=== PATIENT | female | born 1985 | race Caucasian/White ===

== ENCOUNTER → 2023-12-05 09:32 | Outpatient (REF) | payer OTHER, SELFPAY | LOC: PNTC 09:32 | PROVIDERS: ATTENDING PHYSICIAN Obstetrics & Gynecology | DX: Z36.0 Encounter for antenatal screening for chromosomal anomalies (principal); Z36.82 Encounter for antenatal screening for nuchal translucency | CPT/HCPCS: 76801; 76813 ==

== ENCOUNTER 2024-06-08 12:48 | Observation (INO) | payer OTHER, SELFPAY ==
[2024-06-08 13:01] VITALS: BP 113/78; BMI 32.3
== END 2024-06-08 14:04 | disposition home or self-care (01) ==
LOC: LDRP 12:48
PROVIDERS: ADMITTING PHYSICIAN Obstetrics & Gynecology; FAMILY PHYSICIAN Family Medicine; REFERRING PHYSICIAN Obstetrics & Gynecology
DX: O36.8130 Decreased fetal movements, third trimester, not applicable or unspecified (principal); Z3A.39 39 weeks gestation of pregnancy
CPT/HCPCS: 59025; 36415; 86850; 86900; 86901; G0378

== ENCOUNTER 2024-06-10 14:35 | Inpatient (IN) | payer OTHER, SELFPAY ==
[2024-06-10 14:52] VITALS: BP 91/51; BMI 32.0
[2024-06-10] MEDS: LR 1000 IV (14:57)
[2024-06-10 15:15] LABS: % Basophils 0.3 % (0-2); % Eosinophils 0.7 % (0-6); % Lymphocytes 18.8 % (20.5-51.1); % Monocytes 5.2 % (1.7-9.3); Absolute Basophils 0.1 10^3/uL (0-0.2); Absolute Eosinophils 0.1 10^3/uL (0-0.7); Absolute Immature Granulocytes 0.2 10^3/uL (0-0.05); Absolute Lymphocytes 2.7 10^3/uL (1.2-3.4); Absolute Monocytes 0.8 10^3/uL (0.1-0.6); Absolute Neutrophils 10.7 10^3/uL (1.4-6.5); Hematocrit 36.3 % (37.0-47.0); Hemoglobin 12.8 g/dL (12.0-16.0); Mean Corp Hgb Conc. 35.3 g/dL (33.0-37.0); Mean Corpuscular Hgb 30.7 pg (27.0-31.0); Mean Corpuscular Volume 87.1 fL (81.0-99.0); Mean Platelet Volume 10.3 fL (7.4-10.4); Nucleated Red Blood Cells % 0 %; Platelet Count 254 10^3/uL (130-400); Red Blood Cell Count 4.17 10^6/uL (4.20-5.40); Red Cell Dist. Width 13.1 % (11.5-14.5); White Blood Cell Count 14.5 10^3/uL (4.8-10.8)
[2024-06-10] MEDS: MOTRIN 600 MG PO (19:45)
[2024-06-10] MEDS: TYLENOL 650 MG PO (19:45)
[2024-06-11] MEDS: TUMS 2 TABLET PO (00:05)
[2024-06-11] MEDS: TYLENOL 650 MG PO (04:46)
[2024-06-11] MEDS: MOTRIN 600 MG PO ×3 (04:46→20:47)
[2024-06-11 05:40] LABS: Hematocrit 31.3 % (37.0-47.0)
[2024-06-11] MEDS: PRENATAL PLUS PO (13:11)
[2024-06-11] MEDS: SENOKOT-S 1 TABLET PO (13:11)
[2024-06-11 15:43] LABS: Syphilis/T. pallidum Ab Reflex Negative (Negative)
[2024-06-12] MEDS: MOTRIN 600 MG PO (05:21)
[2024-06-12] MEDS: M-M-R II 0.5 ML SC (09:53)
[2024-06-12] MEDS: PRENATAL PLUS 1 TABLET PO (09:55)
== END 2024-06-12 12:03 | disposition home or self-care (01) | DRG 807 ==
LOC: LDRP 14:35
PROVIDERS: ADMITTING PHYSICIAN Obstetrics & Gynecology; FAMILY PHYSICIAN Family Medicine
PROC: 0KQM0ZZ Repair Perineum Muscle, Open Approach (ICD-10-PCS; 2024-06-10)
PROC: 0UQMXZZ Repair Vulva, External Approach (ICD-10-PCS; 2024-06-10)
PROC: 10E0XZZ Delivery of Products of Conception, External Approach (ICD-10-PCS; 2024-06-10)
PROC: 3E0234Z Introduction of Serum, Toxoid and Vaccine into Muscle, Percutaneous Approach (ICD-10-PCS; 2024-06-12)
DX: O70.1 Second degree perineal laceration during delivery (principal); Z37.0 Single live birth; O99.353 Diseases of the nervous system complicating pregnancy, third trimester; G43.909 Migraine, unspecified, not intractable, without status migrainosus; O99.892 Other specified diseases and conditions complicating childbirth; M41.9 Scoliosis, unspecified; Z3A.39 39 weeks gestation of pregnancy; Z85.820 Personal history of malignant melanoma of skin; Z23 Encounter for immunization
CPT/HCPCS: 88307; 85014; 85018; 85025; 86780; 86850; 86900; 86901; 90707